=== PATIENT | female | born 1995 | race Two or more races ===

== ENCOUNTER 2022-04-19 14:47 | Outpatient (CLI) | payer OTHER ==
[2022-04-20 08:07] LABS: T4 FREE (DIRECT) 1.65 ng/dL (0.82-1.77)
== END 2022-04-19 20:03 | disposition home or self-care (01) ==
LOC: MLB 14:47
PROVIDERS: ATTEND Internal Medicine Geriatric Medicine
DX: E55.9 Vitamin D deficiency, unspecified (principal); E03.9 Hypothyroidism, unspecified
CPT/HCPCS: 36415; 82306; 84439; 84443

== ENCOUNTER 2022-08-15 08:23 | Outpatient (CLI) | payer OTHER ==
[2022-08-15 09:33] LABS: BASOPHILS % (AUTO) 0.3 % (0.0-2.0); EOSINOPHILS # (AUTO) 0.1 K/uL (0-0.4); EOSINOPHILS % (AUTO) 1.2 % (0.0-4.0); HEMATOCRIT 39.6 % (36-48); HEMOGLOBIN 13.2 g/dL (12.0-16.0); LYMPHOCYTES # (AUTO) 1.8 K/uL (2.5-16.5); LYMPHOCYTES % (AUTO) 35.1 % (20.5-51.1); MEAN CORPUSCULAR HEMOGLOBIN 29 pg (27-31); MEAN CORPUSCULAR HGB CONC 33 g/dL (33-37); MEAN CORPUSCULAR VOLUME 86.5 fL (80-94); MONOCYTES # (AUTO) 0.4 K/uL (0.8-1.0); MONOCYTES % (AUTO) 8.1 % (1.7-9.3); NEUTROPHILS # (AUTO) 2.9 K/uL (1.8-7.7); NEUTROPHILS % (AUTO) 55.3 % (42.2-75.2); PLATELET COUNT (AUTO) 289 K/uL (140-450); RED BLOOD CELL COUNT(AUTO) 4.58 MIL/uL (4.20-5.40); RED CELL DISTRIBUTION WIDTH 13.1 % (11.6-13.7); WHITE BLOOD COUNT (AUTO) 5.2 K/uL (4.8-10.8)
[2022-08-15 10:01] LABS: ALBUMIN 3.9 g/dL (3.4-5.0); CARBON DIOXIDE 28.4 mmol/L (21-32); CHOL/HDL RATIO 2.6 (1-4.5); CREATININE 0.6 mg/dL (0.6-1.3); POTASSIUM 4.4 mmol/L (3.5-5.1); THYROID STIMULATING HORMONE 1.45 uIU/mL (0.34-3.74); TOTAL BILIRUBIN 0.2 mg/dL (0.0-1.0)
== END 2022-08-15 21:27 | disposition home or self-care (01) ==
LOC: MLB 08:23
PROVIDERS: ATTEND Internal Medicine Geriatric Medicine
DX: E55.9 Vitamin D deficiency, unspecified (principal)
CPT/HCPCS: 36415; 80053; 82306; 84443; 85025

== ENCOUNTER 2022-12-08 08:39 | Outpatient (CLI) | payer OTHER ==
[2022-12-08 09:24] LABS: CHOL/HDL RATIO 2.8 (1-4.5); THYROID STIMULATING HORMONE 1.73 uIU/mL (0.34-3.74)
== END 2022-12-08 20:30 | disposition home or self-care (01) ==
LOC: MLB 08:39
PROVIDERS: ATTEND Internal Medicine Geriatric Medicine
DX: E03.9 Hypothyroidism, unspecified (principal); E78.5 Hyperlipidemia, unspecified; E55.9 Vitamin D deficiency, unspecified
CPT/HCPCS: 36415; 82306; 84443